=== PATIENT | male | born 1950 | race Caucasian/White ===

== ENCOUNTER 2021-12-29 09:02 | Outpatient (CLI) | payer MEDICARE, SELFPAY ==
--- NOTE | ~2021-12-29 | MR_ITS ---
EXAMINATION: MR pelvis wo/w con DATE: 12/29/2021 10:20 INDICATION: Malignant neoplasm of prostate. TECHNIQUE: Magnetic resonance imaging (MRI) of the pelvis was performed without and with 17 mL MultiH ance intravenous contrast. COMPARISON: None. FINDINGS: There is diverticulosis of the colon without evidence of diverticulitis. The prostate is moderately e nlarged. There is a 3.6 x 1.5 cm fluid collection between the rectum and prostate, likely hematoma. T here are small bilateral hydroceles. There are no pathologically enlarged lymph nodes. There is no fr ee intraperitoneal fluid. There is no osseous metastatic disease. IMPRESSION: 1. Moderately enlarged prostate. No evidence of metastatic disease. Reviewed, dictated and finalized at location A.
[2021-12-29 09:31] LABS: Estimated Glomerular Filt Rate > 60
== END 2021-12-29 09:03 | disposition home or self-care (01) ==
PROVIDERS: PCP Nurse Practitioner Family; Visit Provider Radiology Radiation Oncology
DX: C61 Malignant neoplasm of prostate (principal); N40.0 Benign prostatic hyperplasia without lower urinary tract symptoms
CPT/HCPCS: 72197; A9577

== ENCOUNTER 2022-04-27 14:01 | Emergency (ER) | payer MEDICARE, SELFPAY ==
[2022-04-27 14:11] VITALS: BP 160/95; PULSE 73; RESP 18; TEMP 36.6; O2SAT 99
--- NOTE | 2022-04-27 14:14 | ED.URI ---
HPI - URI/Sore Throat General Chief Complaint: Ear Stated Complaint: rt ear discomfort Time Seen by Provider: 04/27/22 14:27 Source: patient and RN notes reviewed Mode of arrival: ambulatory Limitations: no limitations History of Present Illness HPI Narrative: 72-year-old male presents with concern for right ringing in the ear, decreased hearing, sinus pressure and pain, cough. He reports sinus pressure and pain started over a week ago. Reports he started having ringing in the ear several days ago, that has improved but now he has no hearing in his right ear. He denies injury to the right ear. He denies drainage. He reports he is been taking DayQuil and NyQuil the last 2 days for his sinus symptoms. He denies fever, bodies, chills, sweats. MD elicited complaint: nasal congestion, sinus pain and other (Decreased hearing) Related Data Home Medications Medication Instructions Recorded Confirmed atorvastatin 10 mg tablet (Lipitor) 10 mg PO DAILY 04/27/22 04/27/22 losartan 50 mg tablet 50 mg PO DAILY 04/27/22 04/27/22 metformin 500 mg tablet 500 mg PO BID 04/27/22 04/27/22 omeprazole 40 mg capsule,delayed 40 mg PO DAILY 04/27/22 04/27/22 release Allergies Allergy/AdvReac Type Severity Reaction Status Date / Time No Known Allergies Allergy Verified 04/27/22 14:32 Review of Systems Review of Systems: CONSTITUTIONAL: Denies malaise, chills, sweats, or fever. EYES: Denies visual changes, redness, or discharge. ENT: Reports rhinorrhea, congestion, sinus pain. Reports decreased hearing and ringing in the right ear CARDIOVASCULAR: Denies chest pain, palpitations, or edema. RESPIRATORY: Reports cough. Denies dyspnea. GASTROINTESTINAL: Denies abdominal pain, nausea, vomiting, diarrhea SKIN: Denies rash or itching. MUSCULOSKELETAL: Denies myalgia. NEUROLOGIC: Denies headache. All systems reviewed & are unremarkable except as noted in HPI and below PMFSH Comments At time of signature, agree with nursing past medical, surgical, social and family history. There is no relevant family history pertinent to the presenting complaint Exam Narrative: GENERAL: Well-appearing, well-nourished, and in no acute distress. HEAD: Normocephalic EYES: PERRLA, conjunctivae clear ENT: Nares clear, turbinates edematous. Mucous membranes moist. TM pearly golden with dull light reflex bilaterally; no tragal tenderness. Oropharynx not erythematous without lesions. Tonsils not enlarged and without exudate, no drooling, no hoarseness, no trismus, uvula midline. NECK: Supple. No lymphadenopathy CHEST: Clear to auscultation, breath sounds equal. No wheezing, rhonchi, rales, or stridor. No respiratory distress, speaks in full sentences. HEART: Regular rate and rhythm. No murmur heard. SKIN: Warm, dry, no rash. NEURO: Alert and oriented x3. PSYCH: Normal mood and affect Course Course Emergency Course: Advised patient to follow-up with ENT for evaluation of his decreased hearing if symptoms do not improve with treatment of sinusitis. Patient is aware of diagnosis, understands and agrees to treatment plan. Anticipatory guidance given. Patient agrees to follow-up as directed and is aware of reasons to seek care at the emergency department. Portions of this record may have been created with voice recognition software Level of Care: Express Care Visit Vital Signs Vital signs: Vital Signs Temperature 97.9 F 04/27/22 14:11 Pulse Rate 73 04/27/22 14:11 Respiratory Rate 18 04/27/22 14:11 Blood Pressure 160/95 H 04/27/22 14:11 Pulse Oximetry 99 04/27/22 14:11 Oxygen Delivery Room Air 04/27/22 14:11 Temperature 97.9 F 04/27/22 14:11 Pulse Rate 73 04/27/22 14:11 Respiratory Rate 18 04/27/22 14:11 Blood Pressure 160/95 H 04/27/22 14:11 Pulse Oximetry 99 04/27/22 14:11 Oxygen Delivery Room Air 04/27/22 14:11 Reviewed. MDM - URI/Sore Throat MDM Narrative Medical decision making narrative: Differential diagnosis
== END 2022-04-27 14:44 | disposition home or self-care (01) ==
PROVIDERS: Emergency Provider Nurse Practitioner; PCP Nurse Practitioner Family
DX: J32.9 Chronic sinusitis, unspecified (principal); H91.91 Unspecified hearing loss, right ear; E78.00 Pure hypercholesterolemia, unspecified; I10 Essential (primary) hypertension; K21.9 Gastro-esophageal reflux disease without esophagitis; E11.9 Type 2 diabetes mellitus without complications
CPT/HCPCS: 99213; G0463

== ENCOUNTER 2022-06-13 14:10 | Outpatient (CLI) | payer MEDICARE, SELFPAY | END 2022-06-13 14:11 | disposition home or self-care (01) | LOC: ANHAUDIO 14:11 | PROVIDERS: PCP Nurse Practitioner Family; Visit Provider Nurse Practitioner Family | DX: H90.3 Sensorineural hearing loss, bilateral (principal) | CPT/HCPCS: 92557; 92567 ==